=== PATIENT | male | born 2000 | race Asian ===

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

== ENCOUNTER 2020-02-29 19:53 | Emergency (ER) | payer BC ==
[~2020-02-29] VITALS: Ht 175.3 cm; Wt 58.5 kg
[~2020-02-29 19:53] MED LIST changes: +CIPROFLOXACIN500 M1 PO; +FLAGYL500 MG PO; +NORCO 5-325 TA1 EACH PO; +ZOFRAN ODT4 MG PO
[2020-02-29 20:32] LABS: ABSOLUTE EOSINOPHILS 0.1 thou/uL (0.0-0.7); ABSOLUTE LYMPHOCYTES 1.6 thou/uL (0.8-5.3); ABSOLUTE MONOCYTES 0.4 thou/uL (0.0-1.2); ABSOLUTE NEUTROPHILS 3.5 thou/uL (1.6-8.1); BASOPHILS 0.2 %; EOSINOPHILS 2.3 %; HEMATOCRIT 43.3 % (42.0-52.0); HEMOGLOBIN 15.1 gm/dL (14.0-18.0); MCH 30.1 pg (26.0-34.0); MCHC 34.8 g/dL (28.0-37.0); MCV 86.4 fL (80.0-100.0); MPV 9.7 fl. (7.2-11.1); NUCLEATED RBCS 0 /100WBC; PLATELET COUNT* 232 thou/uL (150-400); POLYS 62.5 %; RBC 5.01 mil/uL (4.50-6.00); RDW-CV 13.1 % (10.5-14.5); WBC 5.6 thou/uL (4.0-11.0)
[2020-02-29 20:35] LABS: URINE BILIRUBIN NEGATIVE (Negative); URINE BLOOD NEGATIVE (Negative); URINE CLARITY CLEAR; URINE COLOR YELLOW; URINE GLUCOSE-RANDOM NEGATIVE (Negative); URINE KETONES NEGATIVE (Negative); URINE LEUKOCYTES-REFLEX NEGATIVE (Negative); URINE NITRITE-REFLEX NEGATIVE (Negative); URINE PROTEIN NEGATIVE (Negative); URINE UROBILINOGEN 0.2 E.U./dl (0.2-1.0)
[2020-02-29 20:40] LABS: CALCIUM 8.8 mg/dL (8.5-10.1); CREATININE 0.8 mg/dL (0.6-1.3); POTASSIUM 3.6 mmol/L (3.5-5.1)
[2020-02-29 20:44] LABS: ALBUMIN 4.6 g/dL (3.4-5.0); TOTAL BILIRUBIN 0.4 mg/dL (<0.1-1.0); TOTAL PROTEIN 7.7 g/dL (6.4-8.2)
[2020-02-29] MEDS ORDERED: IBUPROFEN 800800 M1 PO (21:51)
[2020-02-29] MEDS ORDERED: BENTYL 20 MG TA20 M1 PO (21:51)
[2020-02-29 22:04] VITALS: BP 131/70
== END 2020-02-29 22:05 | disposition home or self-care (01) ==
LOC: M.ERS 19:53
PROVIDERS: Nurse Practitioner Family
DX: N50.3 Cyst of epididymis (principal); K59.00 Constipation, unspecified; K82.0 Obstruction of gallbladder